=== PATIENT | male | born 1985 | race Caucasian/White ===

== ENCOUNTER 2021-03-28 12:00 | Outpatient (CLI) | payer BC, SELFPAY ==
[2021-03-28 12:28] LABS: Hematocrit 47.2 % (42.0-52.0); Hemoglobin 15.7 g/dL (14.0-18.0); Mean Corpuscular HGB Conc 33.3 g/dl (32-36); Mean Corpuscular Hemoglobin 30.6 pg (26-34); Platelet Count Result 204 k/mm3 (150-375); Red Blood Count 5.13 M/mm3 (4.6-6.20); Red Cell Distribution Width 12.7 % (11.5-14.5); White Blood Count 5.4 K/mm3 (4.5-10.0)
[2021-03-28 12:39] LABS: Alanine Aminotransferase 142 U/L (4-50); Albumin Level 4.7 g/dL (3.5-5.1); Alkaline Phosphatase 63 U/L (38-126); Anion Gap 8 mmol/L (8-16); Aspartate Amino Transferase 91 U/L (17-59); Bilirubin,Total 0.7 mg/dL (0.2-1.3); Blood Urea Nitrogen 7 mg/dL (9-20); Calcium 9.8 mg/dL (8.4-10.2); Carbon Dioxide 28 mmol/L (22-30); Chloride 100 mmol/L (98-107); Cholesterol 201 mg/dL (0-200); Estimated Glomerular Filt Rate > 60; Glucose 95 mg/dL (65-110); HDL Direct 86 mg/dL; Potassium 4.3 mmol/L (3.4-5.0); Sodium 136 mmol/L (137-145); Triglycerides 89 mg/dL (<150)
[2021-03-28 12:58] LABS: LDL Cholesterol Direct 85 mg/dL
[2021-04-02 10:44] LABS: Testosterone Total 385 ng/dL (250-1100)
== END 2021-03-28 12:01 | disposition home or self-care (01) ==
PROVIDERS: PCP Family Medicine; Visit Provider Physician Assistant Medical
DX: N52.9 Male erectile dysfunction, unspecified (principal); Z13.1 Encounter for screening for diabetes mellitus; Z13.220 Encounter for screening for lipoid disorders
CPT/HCPCS: 36415; 80053; 80061; 84403; 84443; 85027

== ENCOUNTER 2021-04-17 07:45 | Outpatient (CLI) | payer BC, SELFPAY ==
[2021-04-17 08:12] LABS: Alanine Aminotransferase 93 U/L (4-50); Albumin Level 4.6 g/dL (3.5-5.1); Alkaline Phosphatase 50 U/L (38-126); Aspartate Amino Transferase 53 U/L (17-59); Bilirubin,Total 0.5 mg/dL (0.2-1.3)
[2021-04-20 13:15] LABS: GGT 103 U/L (3-90)
== END 2021-04-17 07:46 | disposition home or self-care (01) ==
LOC: ANHLAB 07:50
PROVIDERS: PCP Family Medicine; Visit Provider Physician Assistant Medical
DX: R79.89 Other specified abnormal findings of blood chemistry (principal)
CPT/HCPCS: 36415; 80076; 82977

== ENCOUNTER 2021-05-25 07:08 | Outpatient (CLI) | payer BC, SELFPAY ==
[2021-05-25 07:41] LABS: Alanine Aminotransferase 56 U/L (4-50); Albumin Level 4.6 g/dL (3.5-5.1); Alkaline Phosphatase 43 U/L (38-126); Aspartate Amino Transferase 47 U/L (17-59); Bilirubin,Total 0.7 mg/dL (0.2-1.3)
[2021-05-28 14:47] LABS: GGT 41 U/L (3-90)
== END 2021-05-25 07:09 | disposition home or self-care (01) ==
LOC: ANHLAB 07:13
PROVIDERS: PCP Family Medicine; Visit Provider Physician Assistant Medical
DX: R79.89 Other specified abnormal findings of blood chemistry (principal)
CPT/HCPCS: 36415; 80076; 82977

== ENCOUNTER 2024-08-18 17:32 | Emergency (ER) | payer BC, SELFPAY ==
[2024-08-18 17:42] VITALS: BP 147/84; PULSE 75; RESP 20; TEMP 36.8; O2SAT 100
--- NOTE | 2024-08-18 18:34 | ED.URI ---
HPI - URI/Sore Throat General Chief Complaint: Upper Respiratory Infection Stated Complaint: flu/cold symptoms/ears Time Seen by Provider: 08/18/24 18:34 Source: patient, RN notes reviewed and old records reviewed Mode of arrival: ambulatory Limitations: no limitations History of Present Illness HPI Narrative: 39-year-old male to Express Care with complaint cough for 1 month. Patient complaint of intermittent fever, congestion, left ear fullness and decreased hearing in left ear for 1 week. Patient has attempted to treat at home with [id number] medications with little relief. Patient denies allergies or pertinent medical history. Patient able to tolerate fluids by mouth. Patient hypertensive in triage. Patient resting comfortably in exam room in no acute distress. Related Data Allergies Allergy/AdvReac Type Severity Reaction Status Date / Time No Known Allergies Allergy Verified 08/18/24 17:50 Review of Systems Review of Systems: All systems reviewed & are unremarkable except as noted in HPI and below Constitutional: Constitutional: Reports as per HPI and Reports fever(s) Eyes: Eyes: Reports no additional eye complaints ENT: Reports as per HPI, Reports otalgia ( Left) and Reports nasal congestion Cardiovascular: Cardiovascular: Reports no additional cardiovascular complaints, Denies chest pain and Denies dyspnea Respiratory: Respiratory: Reports as per HPI, Reports cough and Denies dyspnea Musculoskeletal: Musculoskeletal: Reports no additional musculoskeletal complaints Neurologic: Reports system reviewed and no additional complaints, except as documented Psychiatric: Psychiatric: Reports no additional psychiatric complaints [facility] Past Medical History Medical History BMI 34.0-34.9,adult Family History Family History Grandparent Family history of osteoarthritis Diabetes mellitus Other Cerebrovascular accident Family history of cardiovascular disease Family history of lung cancer Hypertension Social History Social History Smoking status: Never smoker Second hand tobacco smoke exposure: No Alcohol intake: current Drinks per week: 10 Substance use: current Substance use type: marijuana Comments At the time of my signature, I reviewed and agree with the nursing past medical, surgical, social, and family history. There is no relevant family history pertinent to the patient complaint. Exam Const: General: cooperative, no acute distress, alert, tired appearing, uncomfortable and well nourished Nutritional Appearance: well nourished Orientation/consciousness: patient oriented x3 Limitations: no limitations HENMT: Head: normal to inspection Ears: external ears normal and TM abnormal bulging on the left, erythematous on the left, with fluid behind the TM on the left and with loss of landmarks on the left Face/Nose/Sinus: Normal external nose present, Normal nares present, normal facial exam, No erythema and No edema Face and sinus: normal facial exam, no erythema and no edema Mouth: Yes Normal oral and palatal mucosa present Eyes: General: appearance normal, both eyes and all related structures Neck: Neck: normal visual inspection, full ROM and no meningeal signs Lymphatic: no lymphadenopathy noted and no lymphedema noted Chest: Chest palpation & inspection: normal inspection of the chest Resp: Effort & Inspection: normal respiratory effort and able to speak in complete sentences Auscultation: clear to auscultation bilaterally Cardio: Jugular venous distension: no JVD Rate: regular rate Rhythm: regular rhythm Back/Spine/Pelvis: Cervical Spine: cervical ROM normal Skin: General skin exam: normal color, no rashes or lesions noted and turgor normal Neuro: General: patient oriented x3, gait normal, moves all extremities and no meningeal signs Speech: normal speech Gait exam (Neuro): Normal gait present Extrem: General: normal to inspection, full ROM and capillary refill normal Psych: Appearance: grossly normal and well kempt Course Course Emergency Course: Some parts of this dictation were generated by voice recognition software and may contain typographical and/or grammatical inaccuracies. Level of Care: Express Care Visit Vital Signs Vital signs: Vital Signs Temperature 36.8 C 08/18/24 17:42 Pulse Rate 75 08/18/24 17:42 Respiratory Rate 20 08/18/24 17:42 Blood Pressure 147/84 H 08/18/24 17:42 Pulse Oximetry 100 08/18/24 17:42 Oxygen Delivery Room Air 08/18/24 17:42 Temperature 36.8 C 08/18/24 17:42 Pulse Rate 75 08/18/24 17:42 Respiratory Rate 20 08/18/24 17:42 Blood Pressure 147/84 H 08/18/24 17:42 Pulse Oximetry 100 08/18/24 17:42 Oxygen Delivery Room Air 08/18/24 17:42 reviewed MDM - URI/Sore Throat MDM Narrative Medical decision making narrative: 39-year-old male to Express Care with complaint cough for 1 month. Patient complaint of intermittent fever, congestion, left ear fullness and decreased hearing in left ear for 1 week. Patient has attempted to treat at home with [id number] medications with little relief. Patient denies allergies or pertinent medical history. Patient able to tolerate fluids by mouth. Patient hypertensive in triage. Patient resting comfortably in exam room in no acute distress. on exam, left TM erythematous, bulging with fluid, dull, loss of landmarks. Left EAC tenderness. Consistent with left otitis media. Patient is sitting comfortably in exam room nontoxic in appearance. Patient appropriate for outpatient treatment and follow-up. Discharge instructions reviewed with patient, as well as provided in writing per nursing staff. The instructions also include specific and strict return/GO TO THE ER as well as f/u information. All questions have been answered, and the patient deny any further questions with discharge and discharge plan. Some parts of this dictation were generated by voice recognition software and may contain typographical and/or grammatical inaccuracies. Differential Diagnosis Differential diagnosis: Likely upper respiratory infection, croup, otitis media, sinusitis, viral infection, bronchitis, influenza and pharyngitis Discharge Plan Discharge Clinical Impression: Acute left otitis media Patient Disposition: Home, Self-Care Condition: Stable Instructions: Ear Infection (ED) Additional Instructions: -Alternate Tylenol and Motrin per package directions for fever or pain. -Antihistamine medication such as Benadryl at night and Zyrtec/Claritin/Negrita during the day can help improve symptoms. -Use Flonase twice a day for 5 days then daily to help reduce the inflammation and dry up your sinuses. -You can also use Sudafed or Mucinex. Be sure to drink plenty of water with these medications at least 8 ounces with every dose and it is important to drink 8 to 10 glasses of water per day. Water is a natural decongestant -Eat and drink things that are easy to swallow, like tea or soup, or popsicles. -Oral rinses such as: Salt water gargles and/or may use topical anesthetic (eg. Chloraseptic spray) or lozenges to relieve dryness or throat pain). -Frequent hand washing or hand director of convention services is one of the best ways to prevent spread of infection. -Using a vaporizer or humidifier at night will also help thin secretions and help with coughing up phlegm. -Follow up with primary care provider in 2-3 days if condition is not improving; or seek ER visit if you have trouble breathing, cannot drink enough fluids, have muffled voice, difficulty opening your mouth, or severe swelling. Patient Language: Polish Prescriptions: New amoxicillin 875 mg tablet 875 mg PO Q12H Qty: 20 0RF Follow-up/Referrals: José Miguel Higginbotham MD [Primary Care Provider] -
== END 2024-08-18 18:43 | disposition home or self-care (01) ==
PROVIDERS: Emergency Provider Nurse Practitioner Family; PCP Family Medicine
DX: H66.92 Otitis media, unspecified, left ear (principal); F12.90 Cannabis use, unspecified, uncomplicated
CPT/HCPCS: 99213; G0463

== ENCOUNTER 2025-05-23 12:38 | Emergency (ER) | payer BC, SELFPAY ==
--- OUTSIDE RECORDS SUMMARY | 2025-05-23 12:40 | XMS_ITS | Clinical Summary ---
Author Organization 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 [employer] Gender Identity Not on file Sexual Orientation Not on file Plan of Treatment Health Maintenance Due Date Last Done Comments Hepatitis C Virus (HCV) Screening 1986 TdaP Immunization 1986 Hepatitis B Immunization (1 of 3 - 19+ 3-dose series) 2005 Human Papillomavirus (HPV) Immunization (1 - 3-dose SCDM series) 2013 SARS-COV-2 Immunization ( - season) 2024 09/13/2021 Influenza Immunization (#1) 2025 Respiratory Syncytial Virus (RSV) Immunization (Adult) (1 - 1-dose 75+ series) 2061 Meningococcal Immunization (ACWY) Aged Out No longer eligible based on patient's age to complete this topic Pneumococcal Immunization Combined Aged Out No longer eligible based on patient's age to complete this topic Rotavirus Immunization Aged Out No lo nger eligible based on patient's age to complete this topic
[2025-05-23 12:48] VITALS: BP 150/102; PULSE 77; RESP 14; TEMP 36.6; O2SAT 100
[2025-05-23 12:55] VITALS: BP 153/97
--- NOTE | 2025-05-23 13:08 | ED.SKABFB ---
HPI - Skin/Abscess/Foreign Bdy General Chief complaint: Skin/Abscess/Foreign Body Stated complaint: poison yaneth for a week Time Seen by Provider: 05/23/25 13:02 Source: patient and RN notes reviewed Mode of arrival: ambulatory Limitations: no limitations History of Present Illness HPI narrative: Patient presents today complaining of severe poison yaneth rash x1 week, affecting all 4 extremities, trunk, and face. 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 He has tried Benadryl, Zyrtec, and Tecnu wash as well as topical itch cream without much improvement. He also has a sunburn on top of this Related Data Allergies Allergy/AdvReac Type Severity Reaction Status Date / Time No Known Allergies Allergy Verified 05/23/25 12:51 PMFSH Past Medical History Medical History BMI 34.0-34.9,adult Family History Family History Grandparent Family history of osteoarthritis Diabetes mellitus Other Cerebrovascular accident Family history of cardiovascular disease Family history of lung cancer Hypertension Social History Social History Smoking status: Never smoker Second hand tobacco smoke exposure: No Alcohol intake: current Drinks per week: 10 Substance use: current Substance use type: marijuana Comments At time of signature, I have reviewed and agree with nursing past medical, surgical, social and family history unless otherwise noted. Please see nursing chart for further information. There is no relevant family history pertinent to the presenting complaint Exam Narrative: GENERAL: Well-appearing, well-nourished, and in no acute distress. HEAD: Normocephalic, atraumatic. EYES: EOMI. No redness or drainage. Conjunctivae normal. ENT: Mucous membranes pink and moist. Nares clear. No rhinorrhea. TMs normal bilaterally. Throat normal. Uvula midline. NECK: Normal AROM.. CHEST: No respiratory distress. EXTREMITIES: Normal range of motion. Patient has some mild edema to the bilateral ankles as well. SKIN: Warm, dry. Capillary refill normal. Normal skin turgor. Widespread erythematous maculopapular rash with few scattered vesicles over all 4 extremities, trunk. Mostly maculopapular to the face. Face is exceptionally erythematous, likely sunburn. No obvious induration noted to the rash NEURO: No focal deficits. Alert and oriented x3. Gait steady. PSYCH: Normal affect. No signs of depression or anxiety. Course Course Level of Care: Express Care Visit Vital Signs Vital signs: Vital Signs Temperature 98 F 05/23/25 12:48 Pulse Rate 77 05/23/25 12:48 Respiratory Rate 14 05/23/25 12:48 Blood Pressure 150/102 H 05/23/25 12:48 Pulse Oximetry 100 05/23/25 12:48 Oxygen Delivery Room Air 05/23/25 12:48 Temperature 98 F 05/23/25 12:48 Pulse Rate 77 05/23/25 12:48 Respiratory Rate 14 05/23/25 12:48 Blood Pressure 153/97 H 05/23/25 12:55 Pulse Oximetry 100 05/23/25 12:48 Oxygen Delivery Room Air 05/23/25 12:48 Review of MDM - Skin/Abscess/Foreign Bdy MDM Narrative Medical decision making narrative: 40-year-old male Patient presents today complaining of severe poison yaneth rash x1 week, affecting all 4 extremities, trunk, and face. 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 He has tried Benadryl, Zyrtec, and Tecnu wash as well as topical itch cream without much improvement. He also has a sunburn on top of this. Exam shows widespread erythematous maculopapular rash with few scattered vesicles over all 4 extremities, trunk with erythema and rash to the face as well. Patient will be prescribed tapering course of prednisone for the poison yaneth after a 1 time dose of IM dexamethasone here at Urgent Care today. He has also been instructed to continue antihistamine for the itching as well. Patient agrees with plan. Vital signs stable with mildly elevated blood pressure today. Anticipatory guidance given. Critical Care Time Critical Care Time Critical Care Time: No Discharge Plan Discharge Clinical Impression: Poison yaneth dermatitis Patient Disposition: Home Condition: Stable Instructions: Poison Yaneth (ED) Additional Instructions: Please start the prednisone tomorrow and take as directed. Continue the antihistamines for itching such as Zyrtec, Claritin, Negrita, or Benadryl. Follow-up with your PCP in 3-4 days if symptoms are not improving. Your blood pressure was elevated above 120/80 today at Urgent Care. This puts you above the threshold for follow up. Please schedule a followup visit with your personal physician as soon as possible, for further evaluation and treatment. Even blood pressure exceeding 120/80 may indicate pre-hypertension. Patient Language: Nepali Prescriptions: New prednisone 10 mg tablet See Rx Instructions .ROUTE .COMPLEX Qty: 42 0RF Rx Instructions: 5 tabs daily x3 days,then 4 tabs daily x3 days,then 3 tabs daily x3 days,then 2 tabs daily x3 days Follow-up/Referrals: José Miguel Higginbotham MD [Primary Care Provider, [facility]] Time of Disposition: 13:08
[2025-05-23] MEDS: dexAMETHasone SOD PHOS INJ 10 MG/ML 1 ML VIAL IM (13:12)
== END 2025-05-23 13:27 | disposition home or self-care (01) ==
PROVIDERS: Emergency Provider Nurse Practitioner; PCP Family Medicine
DX: L23.7 Allergic contact dermatitis due to plants, except food (principal); F12.90 Cannabis use, unspecified, uncomplicated
CPT/HCPCS: 96372; 99213; G0463; J1100

== ENCOUNTER 2025-06-22 15:25 | Outpatient (CLI) | payer BC, SELFPAY ==
[2025-06-22 16:45] LABS: Alanine Aminotransferase 40 U/L (6-50); Albumin Level 4.5 g/dL (3.5-5.1); Alkaline Phosphatase 46 U/L (38-126); Anion Gap 6 mmol/L (4-12); Aspartate Amino Transferase 47 U/L (17-59); Bilirubin,Total 0.7 mg/dL (0.2-1.3); Blood Urea Nitrogen 11 mg/dL (9-20); Calcium 9.3 mg/dL (8.4-10.2); Carbon Dioxide 27 mmol/L (22-30); Chloride 101 mmol/L (98-107); Cholesterol 227 mg/dL (0-200); Estimated Glomerular Filt Rate > 60; Glucose 87 mg/dL (65-110); HDL Direct 88 mg/dL; Potassium 3.8 mmol/L (3.4-5.0); Sodium 134 mmol/L (137-145); Total Protein 7.5 g/dL (6.3-8.2); Triglycerides 99 mg/dL (<150)
--- OUTSIDE RECORDS SUMMARY | 2025-06-22 17:04 | XMS_ITS | Clinical Summary ---
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
[2025-06-22 17:21] LABS: Thyroid Stimulating Hormone 3.670 uIU/mL (0.465-4.680)
== END 2025-06-22 15:26 | disposition home or self-care (01) ==
LOC: ANHLAB 15:26
PROVIDERS: PCP Family Medicine; Visit Provider Nurse Practitioner Family
DX: R79.89 Other specified abnormal findings of blood chemistry (principal); Z13.1 Encounter for screening for diabetes mellitus; Z13.220 Encounter for screening for lipoid disorders
CPT/HCPCS: 36415; 80053; 80061; 84443